=== PATIENT | female | born 1950 | race Caucasian/White ===

== ENCOUNTER 2021-09-09 00:32 | Day surgery (SDC) | payer MEDICARE, SELFPAY ==
[2021-08-28 13:13] VITALS: BMI 36.3
[2021-09-09 10:21] VITALS: BP 147/77; PULSE 101; RESP 18; TEMP 36.2; O2SAT 100
[2021-09-09] MEDS: LACTATED RINGERS 1,000 ML 150 ML IV CONT (10:34)
[2021-09-09 10:37] LABS: Glucose Point of Care 285 mg/dl (65-105)
--- NOTE | 2021-09-09 10:51 | WPDANESEPPF ---
Anes - Initial Pre Proc Eval Procedure: Operation Date: 09/09/21 11:30 Proposed Procedures p Esophagogastroduodenoscopy & Colonoscopy - Rafat Lopez MD Date/Time: 09/09/21 10:51 Surgeon: Rafat Lopez MD Pre Op Diagnosis: Iron Def, Anemia Patient Data Age: 71 Gender: F Height: 1.57 m Weight: 85.7 kg Last Vital Signs Temp 36.2 C L 09/09/21 10:21 Pulse 101 H 09/09/21 10:21 Resp 18 09/09/21 10:21 BP 147/77 H 09/09/21 10:21 Pulse Ox 100 09/09/21 10:21 Allergies Allergy/AdvReac Type Severity Reaction Status Date / Time No Known Allergies Allergy Verified 09/09/21 10:38 Home Medications Medication Instructions Recorded Confirmed Type aspirin [Adult Aspirin] 81 mg PO DAILY 08/28/21 08/28/21 History atorvastatin 20 mg PO DAILY 08/28/21 08/28/21 History cholecalciferol (vitamin D3) 125 mcg PO DAILY 08/28/21 08/28/21 History [Vitamin D3] cyanocobalamin (vitamin B-12) 1,500 mcg PO DAILY 08/28/21 08/28/21 History [Vitamin B-12] hydrochlorothiazide 25 mg PO DAILY 08/28/21 08/28/21 History insulin degludec [Tresiba 60 unit SUBCUT DAILY 08/28/21 08/28/21 History FlexTouch U-200] lisinopril 20 mg PO BID 08/28/21 09/09/21 History metformin 1,000 mg PO BID 08/28/21 08/28/21 History metoprolol succinate 50 mg PO DAILY 08/28/21 08/28/21 History Laboratory Tests 09/09/21 10:28 POC Capillary Glucose 285 mg/dl H mg/dl (65-105) Patient hx anesthesia problems: none Family hx anesthesia problems: none Results Review: All pre-operative results and documents have been reviewed as part of the pre-operative evaluation. [facility] Past Medical History Medical History (Updated 09/09/21 @ 10:51 by Harshad Quach MD) Diabetes HTN (hypertension) Hyperlipidemia Obesity Social History Social History Smoking packs per day: 1 Smoking cigarettes per day: 20.0 Years smoked: 20 Smoking pack-years: 20.00 Smoking status: Former smoker Tobacco type: cigarettes Alcohol intake: never Substance use type: does not use Living arrangements: with family Spiritual care concerns: No Anes - Eval Final PreProcedure Day of Procedure 09/09/21 10:51 Patient weight: obese Heart: regular rate and rhythm Lungs: clear to auscultation Airway: Mallampati scale class II Neurological: alert and oriented Last oral intake: >/= 8 hours ASA classification: III Emergent: no Anesthetic plan: proceed Anesthesia type and monitoring: general GIVS and standard monitoring Results Review: All pre-operative results and documents have been reviewed as part of the pre-operative evaluation. Informed Consent: The patient's anesthetic plan and its attendant risks and benefits were discussed with the patient/family/POA. Questions were solicited and answers provided to the satisfaction of the patient/family/POA.
[2021-09-09] MEDS: BENZOCAINE (*SP) 60 ML SPRAY CAN (HURRICAINE) 1 SPRAY MUCOUS MEM (11:12)
--- NOTE | 2021-09-09 11:12 | PM.HPGS ---
History of Present Illness History of Present Illness Consent: Risks, benefits, and alternatives have been discussed and questions answered. Patient agrees to proceed with procedure. Chief complaint: Iron Def, Anemia Narrative: Kati Husain is a 71 year old female with mild ELIZABETH, hb 10.4 low mcv, denies overt gib. Last colonoscopy ~ 2017 Review of Systems Constitutional: Constitutional: Denies headache(s) and Denies weakness Eyes: Eyes: Denies blurry vision ENT: Reports Normal hearing present, Denies headache(s) and Denies neck pain Cardiovascular: Cardiovascular: Denies chest pain and Denies dyspnea Respiratory: Respiratory: Denies dyspnea Gastrointestinal: Gastrointestinal: Reports no additional gastrointestinal complaints Genitourinary: Genitourinary: Denies dysuria Musculoskeletal: Musculoskeletal: Denies neck pain Integumentary/Breasts: Skin/Breast: Denies dry skin Neurologic: Reports Normal hearing present, Denies headache(s) and Denies weakness Psychiatric: Psychiatric: Denies anxiety Endocrine: Endocrine: Denies change in body appearance Hematologic/Lymphatic: Hematologic/Lymphatic: Denies easy bleeding Allergic/Immunologic: Allergic/Immunologic: Denies urticaria PMFSH Past Medical History Medical History (Updated 09/09/21 @ 11:13 by Rafat Lopez MD) Diabetes HTN (hypertension) Hyperlipidemia Iron deficiency anemia Obesity Social History Social History Smoking packs per day: 1 Smoking cigarettes per day: 20.0 Years smoked: 20 Smoking pack-years: 20.00 Smoking status: Former smoker Tobacco type: cigarettes Alcohol intake: never Substance use type: does not use Living arrangements: with family Spiritual care concerns: No Meds Home Medications and Allergies Home Medications Medication Instructions Recorded Confirmed Type aspirin [Adult Aspirin] 81 mg PO DAILY 08/28/21 08/28/21 History atorvastatin 20 mg PO DAILY 08/28/21 08/28/21 History cholecalciferol (vitamin D3) 125 mcg PO DAILY 08/28/21 08/28/21 History [Vitamin D3] cyanocobalamin (vitamin B-12) 1,500 mcg PO DAILY 08/28/21 08/28/21 History [Vitamin B-12] hydrochlorothiazide 25 mg PO DAILY 08/28/21 08/28/21 History insulin degludec [Tresiba 60 unit SUBCUT DAILY 08/28/21 08/28/21 History FlexTouch U-200] lisinopril 20 mg PO BID 08/28/21 09/09/21 History metformin 1,000 mg PO BID 08/28/21 08/28/21 History metoprolol succinate 50 mg PO DAILY 08/28/21 08/28/21 History Allergies Allergy/AdvReac Type Severity Reaction Status Date / Time No Known Allergies Allergy Verified 09/09/21 10:38 Vital Signs Vital Signs - 24 hr 09/09/21 10:21 Temperature 97.2 F L Pulse Rate 101 H Respiratory Rate 18 Blood Pressure 147/77 H Pulse Oximetry 100 Exam Const: General: comfortable and no acute distress HENMT: General nose exam: Normal nares present Eyes: General: appearance normal, both eyes and all related structures Neck: Neck: no JVD Resp: Auscultation: clear to auscultation bilaterally Cardio: Rate: regular rate Rhythm: regular rhythm GI: Inspection: non-distended GI Palp: Yes Soft to palpation Skin: General skin exam: normal color Neuro: General: gait normal Speech: normal speech Extrem: General: normal to inspection Psych: Mental Status: mental status grossly normal Assessment and Plan Assessment and plan (1) Iron deficiency anemia: Code(s): D50.9 - Iron deficiency anemia, unspecified Status: Acute Assessment and Plan: egd and colonoscopy to assess if gi source
--- NOTE | 2021-09-09 11:20 | SUR.OPER ---
EGD ended at 1118. Colonoscopy started at 1123.
[2021-09-09 11:44] VITALS: BP 96/56; PULSE 84; RESP 20; O2SAT 99
[2021-09-09 11:54] VITALS: BP 110/61; PULSE 82; RESP 20; O2SAT 99
[2021-09-09 12:04] VITALS: BP 121/64; PULSE 84; RESP 18; O2SAT 99
[2021-09-09 12:14] LABS: Glucose Point of Care 222 mg/dl (65-105)
== END 2021-09-09 12:25 | disposition home or self-care (01) ==
PROVIDERS: PCP Internal Medicine; Visit Provider Internal Medicine Gastroenterology
PROC: 0DJ08ZZ Inspection of Upper Intestinal Tract, Via Natural or Artificial Opening Endoscopic (ICD-10-PCS; CPT 43235; principal; 2021-09-09 11:30)
DX: D50.9 Iron deficiency anemia, unspecified (principal); D12.3 Benign neoplasm of transverse colon; K57.30 Diverticulosis of large intestine without perforation or abscess without bleeding; K44.9 Diaphragmatic hernia without obstruction or gangrene; K29.50 Unspecified chronic gastritis without bleeding; E11.9 Type 2 diabetes mellitus without complications; I10 Essential (primary) hypertension; E78.5 Hyperlipidemia, unspecified; E66.9 Obesity, unspecified; Z68.34 Body mass index [BMI] 34.0-34.9, adult; Z79.82 Long term (current) use of aspirin; Z79.4 Long term (current) use of insulin; Z79.84 Long term (current) use of oral hypoglycemic drugs
CPT/HCPCS: 45380; 43239; 82948; 88305; 88342; J2704; J7120